=== PATIENT | male | born 1985 | race Caucasian/White ===

== ENCOUNTER 2017-05-25 14:40 | Emergency (ER) | payer OTHER, MEDICAID ==
[~2017-05-25] VITALS: Ht 162.6 cm; Wt 65.0 kg
[~2017-05-25 14:40] MED LIST: DIVA500T2 PO
[2017-05-25 16:15] VITALS: BP 121/78
== END 2017-05-25 16:18 | disposition home or self-care (01) ==
LOC: ED 16:12
DX: R56.9 Unspecified convulsions (principal)
CPT/HCPCS: 70450; 99284

== ENCOUNTER 2017-12-06 08:00 | Emergency (ER) | payer MEDICAID, OTHER ==
[~2017-12-06] VITALS: Ht 167.6 cm; Wt 85.6 kg
[2017-12-06] MEDS ORDERED: GLEC1TAB PO (09:04)
[2017-12-06] MEDS ORDERED: LEVE750T37 PO (09:04)
[2017-12-06] MEDS ORDERED: SERT25TA PO (09:04)
[2017-12-06 11:14] VITALS: BP 112/78
== END 2017-12-06 11:16 | disposition home or self-care (01) ==
LOC: ED 08:40
DX: I87.8 Other specified disorders of veins (principal); J45.909 Unspecified asthma, uncomplicated
CPT/HCPCS: 93970; 99284